=== PATIENT | female | born 1955 | race Caucasian/White ===

== ENCOUNTER → 2016-10-08 | Outpatient (CLI) | payer OTHER ==
[~2016-10-08] MED LIST: CALC1TAB87 PO; FURO1TAB62 PO; JANT4TAB PO; JANT5TAB PO; MEVA40TA PO; OMEGCAP PO; PANT20 PO; VENL50TA PO; VITA10006 PO
--- NOTE | 2016-10-08 11:24 | RADRPT ---
EXAM DATE/TIME: 10/08/2016 00:00 [place] COMPARISON: KNEE LEFT COMPLETE ([id number]), May 07, 2014, 13:03. INDICATIONS : Dysphagia, especially solid food FLUORO TIME: 1.6 minutes IMAGE COUNT: 0 CONTRAST: Dose as prescribed by speech pathologist. MEDICAL HISTORY : Stroke. SURGICAL HISTORY : None. ENCOUNTER: Initial ACUITY: 1 month PAIN SCORE: Non-responsive. LOCATION: Bilateral esophagus FINDINGS: A modified barium swallow was performed with speech pathology. Patient was given a variety of liquids to swallow. There was no evidence of aspiration. With swallowing of solids there was very little mastication. The patient essentially swallow the wafe r in one piece. This resulted in mild choking. For a full detailed report, see report by the speech pathologist. CONCLUSION: 1. There is no evidence of aspiration. 2. There is very little chewing was solids possibly related to poor dentition. This resulted the reynaldo ent swallowing the entire wafer in one piece which resulted in mild choking. Gilberto Ivy MD on October 08, 2016 at 11:21 Board Certified Radiologist. This report was verified electronically.
== END ==
LOC: HRAD 10:30
PROVIDERS: ATTEND Internal Medicine
DX: R13.10 Dysphagia, unspecified (principal)
CPT/HCPCS: 74230